=== PATIENT | female | born 1980 | race Caucasian/White ===

== ENCOUNTER 2022-01-18 10:10 | Emergency (ER) | payer OTHER, MEDICARE ==
[~2022-01-18] VITALS: Ht 162.6 cm; Wt 56.7 kg
[2022-01-18] MEDS ORDERED: IBUP600 PO (11:01)
[2022-01-18] MEDS ORDERED: Mupirocin22 GM TOP (11:01)
== END 2022-01-18 11:25 | disposition home or self-care (01) ==
LOC: ER 10:10
DX: S61.214A Laceration without foreign body of right ring finger without damage to nail, initial encounter (principal); S60.511A Abrasion of right hand, initial encounter; W54.0XXA Bitten by dog, initial encounter
CPT/HCPCS: 73120; 99283-25; A9270